=== PATIENT | female | born 1950 | race African-American/Black ===

== ENCOUNTER → 2020-01-10 | Outpatient (CLI) | payer MEDICARE, MEDICAID ==
--- NOTE | 2020-01-10 09:27 | RADIOLOGY REPORT (SQ) ---
EXAM DESCRIPTION: CHEST PA/LATERAL IMAGES COMPLETED DATE/TIME: 01/10/2020 9:19 am REASON FOR STUDY: DYSPNEA ON EXERTION COMPARISON: None. EXAM PARAMETERS: NUMBER OF VIEWS: two views TECHNIQUE: Digital Frontal and Lateral radiographic views of the chest acquired. RADIATION DOSE: NA LIMITATIONS: none FINDINGS: LUNGS AND PLEURA: No opacities, masses or pneumothorax. No pleural effusion. MEDIASTINUM AND HILAR STRUCTURES: No masses or contour abnormalities. HEART AND VASCULAR STRUCTURES: Heart normal size. No evidence for failure. BONES: No acute findings. HARDWARE: None in the chest. OTHER: No other significant finding. IMPRESSION: NO SIGNIFICANT RADIOGRAPHIC FINDING IN THE CHEST. TECHNICAL DOCUMENTATION: JOB ID: [id number] 2010 [employer]- All Rights Reserved Reading location - IP/workstation name: [email or web address]
== END ==
LOC: OD 09:00
PROVIDERS: ATTEND Internal Medicine Pulmonary Disease
DX: R06.00 Dyspnea, unspecified (principal)
CPT/HCPCS: 71046

== ENCOUNTER → 2020-04-13 | Outpatient (CLI) | payer MEDICARE, MEDICAID ==
--- NOTE | 2020-04-13 12:40 | WOMENS IMAGING REPORT ---
EXAM DESCRIPTION: BONE DENSITY HIP/SPINE IMAGES COMPLETED DATE/TIME: 04/13/2020 10:42 am REASON FOR STUDY: E28.39 OTHER PRIMARY OVARIAN FAILURE E28.39 OTHER PRIMARY OVARIAN FAILURE COMPARISON: None. TECHNIQUE: Dual-Energy X-ray Absorptiometry (DEXA) of the AP Spine and Hip. LIMITATIONS: None. FINDINGS: LUMBAR SPINE: The bone mineral density (BMD) measured from L1-L4 in the AP projection correlates with a T-score of 2.0, which is normal as defined by the World Health Organization. BMD Change vs Baseline: N/A HIP: The bone mineral density (BMD) measured in the left hip correlates with a T-score of 0.0 in the femor al neck, which is normal as defined by the World Health Organization. BMD Change vs Baseline: N/A 10 year Fracture Risk Assessment: Major Osteoporotic Fracture: Not available. Hip Fracture: Not available. IMPRESSION: 1. LUMBAR SPINE WHO CLASSIFICATION: NORMAL. 2. HIP WHO CLASSIFICATION: NORMAL. OVERALL ASSESSMENT: WHO CLASSIFICATION: NORMAL. COMMENT: The World Health Organization defines low BMD as follows: T-score: Normal: At or above -1.0 Osteopenia: Between -1.0 and -2.5 Osteoporosis: At or below -2.5 without fractures Established osteoporosis: At or below -2.5 with fractures In general, you may wish to consider: Diagnosis Treatment Follow-up DEXA Normal BMD Prevention 2-3 years Osteopenia Prevention/Therapy 1-2 years Osteoporosis Therapy Yearly TECHNICAL DOCUMENTATION: JOB ID: [id number] 2010 [employer]- All Rights Reserved Reading location - IP/workstation name: [email or web address]
== END ==
LOC: WI 10:15
PROVIDERS: ATTEND Internal Medicine Hematology & Oncology
DX: E28.39 Other primary ovarian failure (principal); Z13.820 Encounter for screening for osteoporosis
CPT/HCPCS: 77080

== ENCOUNTER 2020-04-19 07:10 | Emergency (ER) | payer MEDICARE, MEDICAID ==
--- NOTE | 2020-04-19 09:20 | ER Document Report ---
Entered by GWENDOLYN BAEZA SCRIBE 04/19/20 0906 Acting as scribe for:FABIAN CALVILLO MD ED Extremity Problem, Lower - General Chief Complaint: Leg Pain Stated Complaint: HIP PAIN Primary Care Provider: PORSHA HONG MD [ACTIVE STAFF] - Follow up as needed Mode of Arrival: Medic Information source: Patient Notes: This 69 year old female patient brought in by EMS from home presents to the ED today with complaints of episodic left lateral thigh pain for the past x3 weeks, worse this morning. Patient describes the pain as burning sensation that is excruciating. Patient states that in 2012 she was diagnosed with meralgia paresthetica which compresses the lateral femoral cutaneous nerve, but she did not receive any treatment at that time. She states that she has been taking low- dose OTC Advil this past week with little to no relief, none this morning. She mentions that she has an appointment with a specialist on 05/16, but decided to come to the ED for evaluation because the pain was worse. Patient is refusing blood work at this time, stating that she already had blood work done on 04/13 at her PCP's office. She notes that her kidney and liver function were "over the limit." - Related Data Allergies/Adverse Reactions: No Known Allergies Allergy (Unverified 04/19/20 08:09) Home Medications: Norvasc, Atorvastatin, Calcium, Vitamin D Past Medical History - General Information source: Patient - Social History Smoking Status: Never Smoker Cigarette use (# per day): No Chew tobacco use (# tins/day): No Smoking Education Provided: No Frequency of alcohol use: Rare Drug Abuse: None Family History: Reviewed & Not Pertinent, Malignancy Patient has suicidal ideation: No Patient has homicidal ideation: No - Past Medical History Cardiac Medical History: Reports: Hx Hypercholesterolemia, Hx Hypertension Neurological Medical History: Reports: Hx Migraine Malignancy Medical History: Reports: Hx Breast Cancer Review of Systems - Review of Systems Constitutional: No symptoms reported EENT: No symptoms reported Cardiovascular: No symptoms reported Respiratory: No symptoms reported Gastrointestinal: No symptoms reported Genitourinary: No symptoms reported Female Genitourinary: No symptoms reported Musculoskeletal: See HPI Skin: No symptoms reported Hematologic/Lymphatic: No symptoms reported Neurological/Psychological: No symptoms reported -: Yes All other systems reviewed and negative Physical Exam - Vital signs Vitals: Temp Pulse Resp BP Pulse Ox 98.4 F 84 24 H 159/89 H 100 04/19/20 07:22 04/19/20 07:22 04/19/20 07:22 04/19/20 07:22 04/19/20 07:22 Interpretation: Normal - General General appearance: Appears well, Alert In distress: None - HEENT Head: Normocephalic, Atraumatic Eyes: Normal Pupils: PERRL - Respiratory Respiratory status: No respiratory distress Chest status: Nontender Breath sounds: Normal Chest palpation: Normal - Cardiovascular Rhythm: Regular Heart sounds: Normal auscultation Murmur: No Friction rub: No Gallop: None auscultated - Abdominal Inspection: Obese Distension: No distension Bowel sounds: Normal Tenderness: Nontender - Abdomen soft Organomegaly: No organomegaly - Back Back: Normal, Nontender - Extremities General upper extremity: Normal inspection General lower extremity: Normal inspection, Other - Negative straight leg raise bilaterally. No diminished sensation.. No: Edema Thigh: Normal, Nontender. No: Abrasion, Deformity, Ecchymosis - Neurological Neuro grossly intact: Yes Orientation: AAOx4 [place]ley Coma Scale Eye Opening: Spontaneous [place] Coma Scale Verbal: Oriented [place] Coma Scale Motor: Obeys Commands [place] Coma Scale Total: 15 - Psychological Associated symptoms: Normal affect, Normal mood - Skin Skin Temperature: Warm Skin Moisture: Dry Skin Color: Normal Course - Re-evaluation Re-evalutation: 04/19/20 09:15 Patient resting comfortably at this time. Patient states her pain is episodic and has resolved at this moment in time. Patient has a diagnosis of meralgia paresthetica since 2012 when she lived in [facility]. Patient has done well over the span years of time and now it has resurfaced with pain on the lateral left thigh from the hip down to the knee area. 04/19/20 09:17 Discussed with patient regarding her examination today which again shows no pain at this time. Patient's diagnoses really relates to her complaint of burning pain and numbness tingling and pain radiating down the lateral thigh area with the diagnosis of meralgia paresthetica. Patient recently had lab work done by her primary as well as she is having a referral to a specialist so that she can get further management. She was offered steroids by her primary and patient has refused to take steroids at this time. Patient has been taking [id number] Advil 200 mg tablets and states that it seems to have helped. Patient reports that she has liver disease as well as kidney disease therefore I did tell her I did not recommend her taking the Advil and as far as the Tylenol I am not sure she should take Tylenol either inasmuch as I do not know her degree of injury to both of those organs. Recommended patient get back with her primary care physician as soon as possible and try to find a way to get to her a specialist regarding this disease category of meralgia paresthetica. 04/19/20 09:18 Discussed with patient also x-rays and patient agrees that x-rays probably would not be beneficial today. - Vital Signs Vital signs: Temp Pulse Resp BP Pulse Ox 98.4 F 84 24 H 159/89 H 100 04/19/20 07:22 04/19/20 07:22 04/19/20 07:22 04/19/20 07:22 04/19/20 07:22 04/19/20 09:16 Vital signs stable blood pressure is 159/89. Discharge - Discharge Clinical Impression: Meralgia paresthetica of left side Condition: Stable Disposition: HOME, SELF-CARE Additional Instructions: Follow-up with your primary care provider and determine what medications you may be able to take with your pain that you have in your left thigh area. Inasmuch as you report to me that you have both kidney injury as well as liver injury chon t is of some concern. Meanwhile certainly encourage you to never be dehydrated and it may help with your discomfort. Referrals: PORSHA HONG MD [ACTIVE STAFF] - Follow up as needed I personally performed the services described in the documentation, reviewed and edited the documentation which was dictated to the scribe in my presence, and it accurately records my words and actions.
[2020-04-19 09:33] VITALS: BP 145/93
== END 2020-04-19 09:33 | disposition home or self-care (01) ==
LOC: ER 07:10
DX: G57.12 Meralgia paresthetica, left lower limb (principal); M79.652 Pain in left thigh; E78.00 Pure hypercholesterolemia, unspecified; I10 Essential (primary) hypertension; Z85.3 Personal history of malignant neoplasm of breast
CPT/HCPCS: 99283